=== PATIENT | male | born 1945 | race Caucasian/White ===

== ENCOUNTER 2022-11-28 13:42 | Outpatient (CLI) | payer MEDICARE, BC | END 2022-11-28 13:43 | disposition home or self-care (01) | LOC: SCSRAD 13:42 | PROVIDERS: ATTEND Family Medicine | DX: M54.50 Low back pain, unspecified (principal); M47.816 Spondylosis without myelopathy or radiculopathy, lumbar region | CPT/HCPCS: 72100 ==

== ENCOUNTER 2023-09-18 15:49 | Inpatient (IN) | payer MEDICARE, BC ==
[~2023-09-18 15:49] MED LIST: Iopamidol-370 76% 500 ML MDV (1 ML CHARGE) ONE
[2023-09-18] MEDS ORDERED: Dexamethasone 10 MG/ML VIAL ONE (16:13)
[2023-09-18] MEDS ORDERED: Ipratropium/Albuterol 3 ML NEB ONE (16:13)
[2023-09-18 16:26] LABS: Actual Bicarbonate (HCO3v) 34.2 mEq/L (22-28); Chloride (VBG) 96 mmol/L (98-106); Hematocrit-VBG 46 % (42.0-52.0); Hemoglobin (Hb) 15.5 g/dL (12.6-17.4); Potassium (VBG) 4.05 mmol/L (3.70-5.30); Sodium 140 mmol/L (133-146); pH (venous) 7.385 (7.32-7.43)
[2023-09-18 16:41] LABS: #Basophils Less than 0.03 10x3/uL (0.0-0.2); %Basophils 0.2 % (0.0-1.0); %Eosinophils 1.7 % (0.0-10.0); %Lymphocytes 24.9 % (21.0-51.0); %Monocytes 11.8 % (0.0-10.0); %Neutrophils 61.1 % (42.0-75.0); Mean Corpuscular HGB CONC 33.3 g/dL (32.0-36.0); Mean Corpuscular Hemoglobin 32.3 pg (27.0-31.0); Mean Corpuscular Volume 96.8 fL (78.0-98.0); Mean Platelet Volume 9.3 fL (7.4-10.4); Platelet Count 225 10x3/uL (130-400); RBC Distribution Width 12.8 % (11.5-14.5); Red Blood Cell (RBC) Count 4.65 mill/uL (4.70-6.10)
[2023-09-18 16:59] LABS: Troponin I 0.022 ng/mL (< 0.028)
[2023-09-18 17:10] LABS: ALT (SGPT) 8 U/L (8-55); AST (SGOT) 17 U/L (5-34); Albumin 3.5 g/dL (3.4-4.8); Alkaline Phosphatase 134 U/L (40-110); Anion Gap 12 mmol/L (10-20); BUN (Urea Nitrogen) 12 mg/dL (8.4-25.7); Bilirubin, Total 1.2 mg/dL (0.2-1.2); Calc. Creatinine Clearance 0 mL/min (70-130); Calcium 9.7 mg/dL (7.8-10.44); Carbon Dioxide 31 mmol/L (23-31); Chloride 98 mmol/L (98-107); Estimated GFR 92; Globulin 3.9 g/dL (2.4-3.5); Glucose 114 mg/dL (83-110); Lipase 15 U/L (8-78); Magnesium 1.9 mg/dL (1.6-2.6); Potassium 3.9 mmol/L (3.5-5.1); Protein, Total 7.4 g/dL (5.8-8.1); Sodium 137 mmol/L (136-145)
[2023-09-18] MEDS ORDERED: cefTRIAXone (ROCEPHIN) 2 GM VIAL ONE (19:16)
[2023-09-18] MEDS ORDERED: Aspirin Chewable 81 MG TAB ONE (19:16)
[2023-09-18] MEDS ORDERED: Sodium Chloride 0.9% 100 ML ONE (19:16)
[2023-09-18] MEDS ORDERED: Ondansetron PF 4 MG/2 ML Vial IVP PRN (19:31)
[2023-09-18] MEDS ORDERED: Ipratropium Bromide 2.5 ml Neb NEB PRN (19:38)
[2023-09-18] MEDS ORDERED: Azithromycin 500 MG VIAL ONE ×2 (20:47→20:51)
[2023-09-18] MEDS: Azithromycin 500 MG in Sodium Chloride 0.9% 250 ML 250 ML IVPB SCH (21:30)
[2023-09-18] MEDS: Heparin 5,000 UNITS/ML VIAL SC SCH (22:39)
[2023-09-18] MEDS: Ipratropium/Albuterol 3 ML NEB NEB SCH (23:03)
[2023-09-18 23:51] LABS: Troponin I 0.012 ng/mL (< 0.028)
[2023-09-19] MEDS: methylPREDNISolone Sod Succ 40 MG VIAL IVP SCH (00:17)
[2023-09-19 00:46] VITALS: BMI 20.9
[2023-09-19] MEDS: Melatonin 3 MG TAB PO SCH (01:01)
[2023-09-19 04:51] LABS: #Basophils Less than 0.03 10x3/uL (0.0-0.2); #Eosinphils Less than 0.03 10x3/uL (0.0-0.7); %Basophils 0.1 % (0.0-1.0); %Lymphocytes 8.1 % (21.0-51.0); %Monocytes 2.6 % (0.0-10.0); %Neutrophils 88.8 % (42.0-75.0); Hematocrit 42.5 % (42.0-52.0); Hemoglobin 14.3 g/dL (14.0-18.0); Mean Corpuscular HGB CONC 33.6 g/dL (32.0-36.0); Mean Corpuscular Hemoglobin 31.8 pg (27.0-31.0); Mean Corpuscular Volume 94.4 fL (78.0-98.0); Mean Platelet Volume 9.6 fL (7.4-10.4); Platelet Count 224 10x3/uL (130-400); RBC Distribution Width 12.5 % (11.5-14.5)
[2023-09-19 05:24] LABS: Troponin I 0.014 ng/mL (< 0.028)
[2023-09-19 05:35] LABS: Anion Gap 12 mmol/L (10-20); BUN (Urea Nitrogen) 17 mg/dL (8.4-25.7); Calc. Creatinine Clearance 76 mL/min (70-130); Calcium 9.5 mg/dL (7.8-10.44); Carbon Dioxide 28 mmol/L (23-31); Chloride 100 mmol/L (98-107); Estimated GFR 92; Glucose 161 mg/dL (83-110); Potassium 3.9 mmol/L (3.5-5.1); Sodium 136 mmol/L (136-145)
[2023-09-19] MEDS: Pantoprazole DR 40 MG TAB PO SCH (08:13)
[2023-09-19] MEDS: Sacubitril 49 MG/Valsartan 51 MG TABLET PO SCH (08:13)
[2023-09-19] MEDS: ALPRAZolam 0.5 MG TAB PO SCH (08:14)
[2023-09-19] MEDS: Citalopram 20 MG TAB PO SCH (08:14)
[2023-09-19] MEDS: Aspirin 81 mg Enteric Coated Tablet PO SCH (08:14)
[2023-09-19] MEDS: Clopidogrel Bisulfate 75 MG TAB PO SCH (08:14)
[2023-09-19] MEDS: Atorvastatin Calcium 40 MG TAB PO SCH (08:14)
[2023-09-19] MEDS: Furosemide 20 MG TAB PO SCH (08:15)
[2023-09-19] MEDS: Carvedilol 6.25 MG TAB PO SCH (08:15)
[2023-09-19 11:41] VITALS: BMI 20.9
[2023-09-19] MEDS: cefTRIAXone\\ROCEPHIN 1 GM in Sodium Chloride 0.9% 100 ML IVPB SCH (18:16)
[2023-09-19] MEDS: ALPRAZolam 0.25 MG TAB PO SCH (21:21)
[2023-09-19] MEDS: Azithromycin 500 MG in Sodium Chloride 0.9% 250 ML 250 ML IVPB SCH (21:22)
[2023-09-19] MEDS: Acetaminophen 325 MG TAB PO PRN (21:22)
[2023-09-20 06:11] LABS: #Basophils Less than 0.03 10x3/uL (0.0-0.2); #Eosinphils Less than 0.03 10x3/uL (0.0-0.7); %Basophils 0.2 % (0.0-1.0); %Lymphocytes 13.8 % (21.0-51.0); %Monocytes 7.7 % (0.0-10.0); %Neutrophils 77.9 % (42.0-75.0); Hematocrit 40.9 % (42.0-52.0); Hemoglobin 13.8 g/dL (14.0-18.0); Mean Corpuscular HGB CONC 33.7 g/dL (32.0-36.0); Mean Corpuscular Hemoglobin 32.2 pg (27.0-31.0); Mean Corpuscular Volume 95.3 fL (78.0-98.0); Mean Platelet Volume 9.6 fL (7.4-10.4); Platelet Count 218 10x3/uL (130-400); RBC Distribution Width 12.7 % (11.5-14.5); Red Blood Cell (RBC) Count 4.29 mill/uL (4.70-6.10)
[2023-09-20 06:28] LABS: Anion Gap 13 mmol/L (10-20); BUN (Urea Nitrogen) 19 mg/dL (8.4-25.7); Calc. Creatinine Clearance 77 mL/min (70-130); Carbon Dioxide 31 mmol/L (23-31); Chloride 99 mmol/L (98-107); Estimated GFR 93; Glucose 122 mg/dL (83-110); Potassium 3.6 mmol/L (3.5-5.1); Sodium 139 mmol/L (136-145)
[2023-09-20] MEDS: Nitroglycerin 0.4 MG TAB (25 Tab Bottle) ONE (09:11)
[2023-09-20] MEDS: Sodium Chloride 0.9% 500 ML IV SCH ×2 (09:51→15:51)
[2023-09-20] MEDS: Digoxin 0.5 MG/2 ML AMP SLOW IVP SCH (09:58)
[2023-09-20] MEDS: Amiodarone 150 MG, Admixture Fee 1 EACH in Dextrose 5% in Water 100 ML IVPB SCH (11:00)
[2023-09-20] MEDS: Amiodarone 450 MG, Admixture Fee 1 EACH in Dextrose 5% in Water 250 ML IVPB SCH (11:00)
[2023-09-20 11:21] LABS: Troponin I 0.028 ng/mL (< 0.028)
[2023-09-20 13:43] LABS: Critical Call Chem Troponin I NUR.MAT @1343; Troponin I 0.411 ng/mL (< 0.028)
[2023-09-20] MEDS: Sodium Chloride 0.9% 100 ML ONE (18:36)
[2023-09-20] MEDS: Melatonin 3 MG TAB PO PRN (20:37)
[2023-09-21] MEDS: Morphine 2 MG/ML VIAL SLOW IVP SCH (02:32)
[2023-09-21 08:04] LABS: #Basophils Less than 0.03 10x3/uL (0.0-0.2); %Basophils 0.2 % (0.0-1.0); %Eosinophils 1.6 % (0.0-10.0); %Lymphocytes 19.4 % (21.0-51.0); %Monocytes 9.6 % (0.0-10.0); Hematocrit 40.8 % (42.0-52.0); Hemoglobin 13.4 g/dL (14.0-18.0); Mean Corpuscular HGB CONC 32.8 g/dL (32.0-36.0); Mean Corpuscular Hemoglobin 32.1 pg (27.0-31.0); Mean Corpuscular Volume 97.6 fL (78.0-98.0); Mean Platelet Volume 9.7 fL (7.4-10.4); Platelet Count 191 10x3/uL (130-400); RBC Distribution Width 12.9 % (11.5-14.5); Red Blood Cell (RBC) Count 4.18 mill/uL (4.70-6.10)
[2023-09-21 08:16] LABS: Anion Gap 15 mmol/L (10-20); BUN (Urea Nitrogen) 17 mg/dL (8.4-25.7); Calc. Creatinine Clearance 79 mL/min (70-130); Calcium 8.8 mg/dL (7.8-10.44); Carbon Dioxide 27 mmol/L (23-31); Chloride 99 mmol/L (98-107); Estimated GFR 92; Glucose 143 mg/dL (83-110); Potassium 3.7 mmol/L (3.5-5.1); Sodium 137 mmol/L (136-145)
[2023-09-21] MEDS: Morphine 2 MG/ML VIAL ONE (08:20)
[2023-09-21] MEDS: Budesonide 0.25 MG/2 ML NEB INH SCH (18:29)
[2023-09-21] MEDS: Apixaban 5 MG TAB PO SCH (20:30)
[2023-09-22 04:13] LABS: #Basophils Less than 0.03 10x3/uL (0.0-0.2); %Basophils 0.2 % (0.0-1.0); %Eosinophils 3.3 % (0.0-10.0); %Lymphocytes 20.1 % (21.0-51.0); %Monocytes 10.3 % (0.0-10.0); %Neutrophils 65.8 % (42.0-75.0); Hematocrit 41.8 % (42.0-52.0); Hemoglobin 13.7 g/dL (14.0-18.0); Mean Corpuscular HGB CONC 32.8 g/dL (32.0-36.0); Mean Corpuscular Hemoglobin 32.4 pg (27.0-31.0); Mean Corpuscular Volume 98.8 fL (78.0-98.0); Mean Platelet Volume 9.6 fL (7.4-10.4); Platelet Count 206 10x3/uL (130-400); RBC Distribution Width 12.6 % (11.5-14.5); Red Blood Cell (RBC) Count 4.23 mill/uL (4.70-6.10)
[2023-09-22 04:20] LABS: Anion Gap 9 mmol/L (10-20); BUN (Urea Nitrogen) 14 mg/dL (8.4-25.7); Calc. Creatinine Clearance 89 mL/min (70-130); Calcium 9.1 mg/dL (7.8-10.44); Carbon Dioxide 32 mmol/L (23-31); Chloride 97 mmol/L (98-107); Estimated GFR 96; Glucose 113 mg/dL (83-110); Potassium 3.7 mmol/L (3.5-5.1); Sodium 134 mmol/L (136-145)
[2023-09-23 08:19] VITALS: TEMP 97.3
[2023-09-23 17:28] VITALS: BP 100/62
== END 2023-09-23 16:30 | disposition home or self-care (01) | DRG 193 ==
LOC: ERS 15:49 → 2NO 19:27 → OBSVTOIN 09-19 12:57 → T4-B 09-19 17:55 → IMCU/EMU 09-20 10:06 → 2NO 09-22 11:31
PROVIDERS: ADMIT Family Medicine; ATTEND Hospitalist
DX: J18.9 Pneumonia, unspecified organism (principal); I21.A1 Myocardial infarction type 2; J96.21 Acute and chronic respiratory failure with hypoxia; J44.1 Chronic obstructive pulmonary disease with (acute) exacerbation; J44.0 Chronic obstructive pulmonary disease with (acute) lower respiratory infection; I25.10 Atherosclerotic heart disease of native coronary artery without angina pectoris; F17.210 Nicotine dependence, cigarettes, uncomplicated; E78.5 Hyperlipidemia, unspecified; I48.91 Unspecified atrial fibrillation; I48.0 Paroxysmal atrial fibrillation; Z95.1 Presence of aortocoronary bypass graft; Z95.9 Presence of cardiac and vascular implant and graft, unspecified; Z79.82 Long term (current) use of aspirin; Z79.899 Other long term (current) drug therapy
CPT/HCPCS: 36415; 71045; 71275; 80048; 80053; 82805; 83690; 83735; 83880; 84484; 85025; 85379; 87804; 93005; 93010; 93306; 94640; 96365; 96375; J0282; J0456; J0696; J1100; J1160; J1644; J2272; J2920; J3490; J7030; J7050; J7070; J7620; J7626; Q9967